=== PATIENT | female | born 1995 | race Caucasian/White ===

== ENCOUNTER 2022-05-07 19:12 | Emergency (ER) | payer OTHER ==
[~2022-05-07] VITALS: Ht 157.5 cm; Wt 54.0 kg
[2022-05-07 21:36] VITALS: BP 123/70
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
--- NOTE | 2022-05-07 22:04 | NUR ---
URINE SAMPLE SENT TO LAB
--- NOTE | 2022-05-07 22:42 | NUR ---
[facility]
--- NOTE | 2022-05-08 00:27 | NUR ---
Patient discharged to home in stable condition. Written and verbal after care instructions given. Patient verbalizes understanding of instruction. PT ambulatory with a steady gait
== END 2022-05-08 00:30 | disposition home or self-care (01) ==
LOC: ER 19:18
DX: S06.0X0A Concussion without loss of consciousness, initial encounter (principal); R51.9 Headache, unspecified; Z88.0 Allergy status to penicillin; Z60.2 Problems related to living alone; W20.8XXA Other cause of strike by thrown, projected or falling object, initial encounter; Y93.89 Activity, other specified; Y92.89 Other specified places as the place of occurrence of the external cause; Y99.8 Other external cause status
CPT/HCPCS: 70450-TC; 84703-TC